=== PATIENT | female | born 1980 | race Caucasian/White ===

== ENCOUNTER 2021-05-04 19:23 | Emergency (ER) | payer OTHER ==
--- NOTE | 2021-05-04 21:19 | EDPHYS ---
Physician Documentation [facility] Name: Nini Carreon Age: 40 yrs Sex: Female : 1980 Arrival Date: 05/04/2021 Time: 19:27 Bed DX2 Private MD: ED Physician Shelton Bonds HPI: 05/04 20:03 This 40 yrs old Female presents to ER via Ambulatory with complaints of Covid pm1 Swab. 20:03 The patient presents to the emergency department with nausea, vomiting. Onset: The pm1 symptoms/episode began/occurred 1 week(s) ago. Possible causes: Exposure to Covid in work environment. The symptoms are aggravated by nothing. The symptoms are alleviated by nothing. Associated signs and symptoms: Pertinent positives: fever, Cough and congestion. Severity of symptoms: in the emergency department the symptoms have improved. The patient has not experienced similar symptoms in the past. The patient has not recently seen a physician. 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 - Social history:: Smoking status: Patient reports the use of cigarette tobacco products, smokes one-half pack cigarettes per day. ROS: 20:03 Eyes: Negative for injury, pain, redness, and discharge, ENT: Negative for injury, pm1 pain, and discharge, Cardiovascular: Negative for chest pain, palpitations, and edema, Respiratory: Negative for shortness of breath, cough, wheezing, and pleuritic chest pain. 20:03 MS/Extremity: Negative for injury and deformity, Skin: Negative for injury, rash, and discoloration, Neuro: Negative for headache, weakness, numbness, tingling, and seizure. 20:03 Constitutional: Positive for body aches, fever, Negative for poor PO intake. 20:03 Abdomen/GI: Positive for nausea, vomiting, and diarrhea, Negative for abdominal pain. 20:03 All other systems are negative. Exam: 20:03 Constitutional: This is a well developed, well nourished patient who is awake, alert, pm1 and in no acute distress. Head/Face: Normocephalic, atraumatic. 20:03 Skin: Warm, dry with normal turgor. Normal color with no rashes, no lesions, and no evidence of cellulitis. MS/ Extremity: Pulses equal, no cyanosis. Neurovascular intact. Full, normal range of motion. 20:03 Cardiovascular: Exam negative for acute changes, Rate: normal, Rhythm: regular, Pulses: no pulse deficits are appreciated. 20:03 Respiratory: Exam negative for acute changes, respiratory distress, shortness of breath. 20:03 Neuro: Exam negative for acute changes, Orientation: is normal, Mentation: is normal, Motor: is normal, moves all fours. Vital Signs: 19:40 BP 136 / 84; Pulse 101; Resp 18 S; Temp 99.1(O); Pulse Ox 99% on R/A; Weight 77.11 kg ca1 (R); Height 5 ft. 6 in. (167.64 cm) (R); 21:06 BP 126 / 73; Pulse 95; Resp 18 S; Pulse Ox 99% on R/A; ca1 19:40 Body Mass Index 27.44 (77.11 kg, 167.64 cm) ca1 MDM: 19:52 Patient medically screened. pm1 21:18 Data reviewed: vital signs. Data interpreted: Pulse oximetry: on room air is 99 %. pm1 Interpretation: normal. Counseling: I had a detailed discussion with the patient and/or guardian regarding: the historical points, exam findings, and any diagnostic results supporting the discharge/admit diagnosis, lab results, the need for outpatient follow up, to return to the emergency department if symptoms worsen or persist or if there are any questions or concerns that arise at home. 05/04 21:13 Order name: SARS-COV-2 RT PCR; Complete Time: 21:17 EDMS Administered Medications: No medications were administered Disposition: 05/05 07:08 Co-signature as Attending Physician, Shelton Bonds MD I agree with the assessment and yuki plan of care. Disposition Summary: 05/04/21 21:18 Discharge Ordered Location: Home pm1 Problem: new pm1 Symptoms: have improved pm1 Condition: Stable pm1 Diagnosis - Coronavirus infection, unspecified pm1 Followup: pm1 - With: Emergency Department - When: As needed - Reason: Worsening of condition Followup: pm1 - With: Private Physician - When: 2 - 3 days - Reason: Recheck today's complaints, Continuance of care, Re-evaluation by your physician Discharge Instructions: - Discharge Summary Sheet pm1 - COVID-19 pm1 Forms: - Medication Reconciliation Form pm1 - Thank You Letter pm1 - Antibiotic Education pm1 - Work release form pm1 - Prescription Opioid Use pm1 Signatures: Dispatcher [employer] EDMS Shelton Bonds MD MD cha Marinas, Patrick, NP GRADE SETTER pm1 Nadia Roman RN RN ca1 Corrections: (The following items were deleted from the chart) 05/04 20:18 19:46 CORONAVIRUS+MR.LAB.BRZ ordered. EDMS EDMS
--- NOTE | 2021-05-04 21:19 | ER ---
Nurse's Notes [facility] Name: Nini Carreon Age: 40 yrs Sex: Female : 1980 Arrival Date: 05/04/2021 Time: 19:27 Bed DX2 Private MD: Diagnosis: Coronavirus infection, unspecified Presentation: 05/04 19:40 Chief complaint: Patient states: S/S 04/28/2021. Chills, loss of taste and smell, N/V/D, ca1 muscle ache, headache, congestion and cough, fever. Coronavirus screen: Client denies travel out of the [place] in the last 14 days. chills, congestion, cough unrelated to allergies, diarrhea, fatigue, fever, headache, muscle pain, nausea, runny nose, loss of taste or smell, vomiting. Client presents with at least one sign or symptom that may indicate coronavirus-19. Standard/surgical mask placed on the client. Provider contacted for isolation considerations. Ebola Screen: Patient negative for fever greater than or equal to 101.5 degrees Fahrenheit, and additional compatible Ebola Virus Disease symptoms Patient denies exposure to infectious person. Patient denies travel to an Ebola-affected area in the 21 days before illness onset. No symptoms or risks identified at this time. Initial Sepsis Screen: Does the patient meet any 2 criteria? No. Patient's initial sepsis screen is negative. Does the patient have a suspected source of infection? No. Patient's initial sepsis screen is negative. Risk Assessment: Do you want to hurt yourself or someone else? Patient reports no desire to harm self or others. Onset of symptoms was April 28, 2021. 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 - Social history:: Smoking status: Patient reports the use of cigarette tobacco products, smokes one-half pack cigarettes per day. Screenin:48 Abuse screen: Denies threats or abuse. Denies injuries from another. Nutritional ca1 screening: No deficits noted. Tuberculosis screening: No symptoms or risk factors identified. Fall Risk None identified. Assessment: 19:48 General: Appears in no apparent distress. comfortable, Behavior is calm, cooperative, ca1 appropriate for age. General: Reports chills for fever for feeling ill for fatigue for >3 days. Pain: Complains of pain in all over Pain began a week ago. Neuro: Level of Consciousness is awake, alert, obeys commands, Oriented to person, place, time, situation. Cardiovascular: Heart tones S1 S2 present Capillary refill < 3 seconds Patient's skin is warm and dry. Respiratory: Reports cough that is Airway is patent Respiratory effort is even, unlabored, Respiratory pattern is regular, symmetrical, Breath sounds are clear bilaterally. GI:. EENT: Reports nasal congestion. Derm: Skin is intact, is healthy with good turgor, Skin is pink, warm \T\ dry. Musculoskeletal: Circulation, motion, and sensation intact. Capillary refill < 3 seconds. 21:06 Reassessment: Patient appears in no apparent distress at this time. Patient and/or ca1 family updated on plan of care and expected duration. Pain level reassessed. Patient is alert, oriented x 3, equal unlabored respirations, skin warm/dry/pink. Vital Signs: 19:40 BP 136 / 84; Pulse 101; Resp 18 S; Temp 99.1(O); Pulse Ox 99% on R/A; Weight 77.11 kg ca1 (R); Height 5 ft. 6 in. (167.64 cm) (R); 21:06 BP 126 / 73; Pulse 95; Resp 18 S; Pulse Ox 99% on R/A; ca1 19:40 Body Mass Index 27.44 (77.11 kg, 167.64 cm) ca1 ED Course: 19:27 Patient arrived in ED. bp1 19:43 Triage completed. ca1 19:43 Arm band placed on right wrist. ca1 19:48 Patient has correct armband on for positive identification. ca1 19:49 Nadia Roman, NIKKIE is Primary Nurse. ca1 19:52 Armen Fernández NP is PHCP. pm1 19:52 Vikash Cunningham MD is Attending Physician. pm1 19:52 Attending Physician role handed off by Vikash Cunningham MD [facility] 19:52 Shelton Bonds MD is Attending Physician. yuki 20:27 No provider procedures requiring assistance completed. Patient did not have IV access ca1 during this emergency room visit. 21:14 Notified Nurse Practitioner and/or Physician Electrical Research Engineer of a critical lab result(s), ca1 COVID+. Administered Medications: No medications were administered Outcome: 21:18 Discharge ordered by . pm1 21:39 Discharged to home ambulatory. em 21:39 Condition: stable 21:39 Discharge instructions given to patient, Instructed on discharge instructions, follow up and referral plans. Demonstrated understanding of instructions, follow-up care. 21:40 Patient left the ED. em Signatures: Shelton Bonds MD MD cha Munoz, Edgar RN RN em Armen Fernández, BUTTER PRINTER BUTTER PRINTER pm1 Nadia Roman RN RN Diamond Zheng bp1
[2021-05-04 22:31] VITALS: TEMP 99.1; O2SAT 99
[2021-05-04 22:34] VITALS: BP 126/73
== END 2021-05-04 21:40 | disposition home or self-care (01) ==
LOC: ER 19:23
DX: U07.1 COVID-19 (principal)
CPT/HCPCS: 99281; U0003

== ENCOUNTER 2023-10-12 06:18 | Day surgery (SDC) | payer BC ==
[2023-10-06 11:35] LABS: Absolute Lymphocytes (CBC) 3.1 K/uL (0.7-4.9); Hematocrit 48.3 % (36.0-45.0); Lymphocytes % 25.9 % (15.3-44.8); Platelets 282 thou/uL (152-406); RBC Red Blood Cell Count 5.49 M/uL (3.86-4.86)
--- NOTE | 2023-10-06 11:38 | RAD REPORT ---
EXAM DESCRIPTION: RAD - Chest Pa And Lat (2 Views) - 10/06/2023 11:31 am CLINICAL HISTORY: pre op for surgery. Hypertension COMPARISON: CHEST PA AND LAT 2 VIEW dated 02/13/2015; CHEST PA AND LAT 2 VIEW dated 03/18/2011; CHEST SINGLE VIEW dated 12/13/2010; CHEST PA AND LAT 2 VIEW dated 05/06/2010 TECHNIQUE: PA and lateral views of the chest were obtained. FINDINGS: The lungs are clear. Heart size is normal and central vasculature is within normal limits. No pleural effusion or pneumothorax seen. No acute bony finding noted. IMPRESSION: No acute cardiopulmonary process.
[2023-10-06 11:43] LABS: Specific Gravity 1.028 (1.005-1.030); Urine Bacteria <20 /HPF (<20); Urine Bilirubin NEGATIVE (Negative); Urine Blood Trace (Negative); Urine Clarity Extremely Turbid (Clear); Urine Color Yellow (Yellow); Urine Glucose NEGATIVE (Negative); Urine Mucus 1+ /HPF (None Seen); Urine Protein TRACE (Negative); Urine Urobilinogen Normal (Normal); Urine pH 5.5 (5.0-7.0)
[2023-10-11 01:33] LABS: Specific Gravity 1.028 (1.005-1.030)
[2023-10-12] MEDS ORDERED: CEFAZOLIN SODIUM 2 GM/VIAL ONE (06:35)
[2023-10-12] MEDS ORDERED: Ringers Lactate 1,000 ML IV ONE ×2 (06:35→09:24)
[2023-10-12] MEDS ORDERED: BUPIVACAINE 0.25% PF 30 ML VIAL ONE (06:54)
[2023-10-12] MEDS ORDERED: GLYCOPYRROLATE 0.2 MG/ML SYR ONE (07:11)
[2023-10-12] MEDS ORDERED: ROCURONIUM 50 MG/5 ML VIAL IV ONE (07:11)
[2023-10-12] MEDS ORDERED: NEOSTIGMINE 1 MG/ML -10 ML VIAL ONE (07:11)
[2023-10-12] MEDS ORDERED: LIDOCAINE 2% MPF 5 ML VIAL ONE (07:11)
[2023-10-12] MEDS ORDERED: ONDANSETRON 4 MG/2 ML VIAL ONE (07:11)
[2023-10-12] MEDS ORDERED: FENTANYL CITR 100 MCG/2 ML ONE ×2 (07:14→08:06)
[2023-10-12] MEDS ORDERED: MIDAZOLAM HCL 2 MG/2 ML INJ ONE (07:14)
[2023-10-12] MEDS ORDERED: propofoL 200 MG/20 ML VIAL IV ONE (07:14)
[2023-10-12] MEDS ORDERED: SCOPOLAMINE HYDROBROMIDE PATCH TD ONE ×2 (07:26→09:25)
[2023-10-12] MEDS: HYDROMORPHONE HCL 1 MG/ML INJ ONE ×2 (10:08→10:13)
[2023-10-12 10:38] VITALS: O2SAT 96
[2023-10-12] MEDS ORDERED: HYDROCODONE/APAP 5/325 MG TAB ONE (11:00)
[2023-10-12] MEDS ORDERED: KETOROLAC 30 MG/ML INJ ONE (11:56)
[2023-10-12 15:01] LABS: Absolute Lymphocytes (CBC) 0.8 K/uL (0.7-4.9); Hematocrit 43.4 % (36.0-45.0); Lymphocytes % 4.9 % (15.3-44.8); MCV 88.9 fL (80-100); MPV 8.4 fL (7.6-11.3); Platelets 240 thou/uL (152-406); RBC Red Blood Cell Count 4.89 M/uL (3.86-4.86)
[2023-10-12 15:13] LABS: Potassium 4.1 mEq/L (3.5-5.1)
[2023-10-12 16:03] LABS: Blood Morphology Comment NOT SEEN (NOT SEEN); Platelet Estimate ADEQ; White Blood Cell Scan OK (OK)
[2023-10-12 17:26] VITALS: BP 116/78; TEMP 97.4
--- NOTE | 2023-10-14 03:29 | OP ---
Date of Procedure: 10/12/2023 Surgeon: Sujatha Montero MD [facility] Medical Specialist: Iwona Bower Preoperative Diagnoses: Pelvic pain and right complex ovarian cyst. Postoperative Diagnoses: Pelvic pain and right complex ovarian cyst, stage III uterovaginal prolapse , posterior enterocele, and posterior wall defect with perineal descent and possible mild rectal prol apse. Procedures Performed: 1.Total laparoscopic hysterectomy. 2.Bilateral salpingectomy. 3.Right oophorectomy. 4.Left ovariopexy. Estimated Blood Loss: Less than 25 mL. Specimens: Uterus, bilateral tubes, and right ovary. Complications: No complications. Drains: No drains. Condition: Stable. Findings: No right ovarian cyst. No endometriosis. Left ovary was extremely immobile and therefore ovariopexy was conducted to the distal part of the round ligament on the left side. The patient's P OP-Q on my examination under anesthesia was -2, -2, 0, 4.5, thin, 8, -1, 0, -2. Significant perineal descent and a posterior enterocele were noted as well as mild rectal prolapse. No mass was seen on the right adnexa, likely a ruptured cyst and left ovariopexy as dictated. Procedure In Detail: After informed consent was verified, the patient was taken back to OR. She had significant right lower quadrant pain and pelvic pain even though it was in the absence of bleeding. She is a smoker. Ovarian preservation was reviewed. Medical management had failed, so she was con sented for hysterectomy and bilateral salpingectomy. On one of the scans, she had a 4.1 cm and over 2 cm complex masses with debris, and the right adnexa considered to be possible endometrioma. CA-125 was done and was only 19. Consented her for TLH, bilateral salpingectomy, right oophorectomy, and p reservation of left ovary. After she was taken back to the OR, placed in a supine fashion on the operating table, general anesth esia was given. She was placed in a dorsal lithotomy position. Arms tucked by the side. Abdomen wa s prepped with ChloraPrep; vulva, vagina, and perineum with Betadine. SCDs were started. Ancef was given 2 g. Time-out was done and procedure started. Speculum was placed to expose the cervix. Anterior lip was grasped with single-tooth tenaculum, dila leidy to 16-Swedish. Large cup uterine manipulator was introduced and fixed in place. Escobar was placed to drain the bladder and attached to retrograde filling. This area was draped. One cm infraumbilical incision was made with the scalpel using the open laparoscopy technique. Fasci a incised, tagged with 0 Vicryl sutures, and the peritoneum entered sharply. After Rogder was introd uced and adequate insufflation was obtained, she had a 10 mm suprapubic port and a 5 mm left lower qu adrant port. After visualization of the pelvic cavity, no endometriosis was found. The right ovary appeared to be mostly unremarkable, likely a ruptured cyst that had been reabsorbed, very pendulous o n the left side. Significant pelvic organ prolapse, as dictated in the procedure note above, uterosacral ligament on t he left side was completely relaxed and unidentifiable. However, the left side was defined and was r e-included in the cuff closure as dictated later. The left round ligament was taken down and the left tube was taken down. Utero-ovarian ligament was taken and the broad ligament. The anterior and posterior leaves of the peritoneum were opened up. U reters were traced from the pelvic brim to the ureteric tunnels. The bladder flap was raised anterio rly and posteriorly. The posterior peritoneum was opened up. The vessels were taken down and shaina al ligament was taken down. Opposite side dissection was performed to isolate the IP from the latera l wall between the ureter and the IP. The IP was taken down with the help of the LigaSure, and mesos alpinx and the rest of the mesovarium were all taken down. The round ligament was taken down. Broad ligament was taken down. Anteriorly connected the bladder flap. Posteriorly taken down to the post erior rim of the cup. Then, vessels were identified, taken down and the cardinal ligaments were take n down. Circumferential colpotomy was performed after the bladder was retracted inferiorly with the help of monopolar hook blade, and the bladder was filled and drained to note its marking. After the specimen was detached and pulled out through the vagina, thorough irrigation and suction performed. There was bleeding on the left lateral aspect. This was cauterized with the bipolar [place] grasper and then 0 PDS suture was placed at this angle, which secured complete hemostasis. Similarly, oppos ite side simple angle stitch was placed and then three [id number] in the middle and another sim ple 0 Vicryl stitch in the midline as well to complete that position. Excellent support in the utero sacrals included here. After the irrigation and suction were performed and hemostasis was secured, ovariopexy was performed with 3-0 Monocryl to the base of the left round ligament. Ovariopexy was performed in a buried figur e-of-eight fashion and tied down. After thorough irrigation and suction here, and all pedicles were secured, all the ports were removed and gas was desufflated. Fascia was closed with the tagged 0 Ron ryl sutures tied to each other and simple 0 Vicryl stitch at the fascia on the suprapubic site. All the skin incisions were closed with the help of interrupted 5-0 Monocryl. Escobar was removed and vagi nal bulb occluder were removed. Cystoscopy was performed with 17-Swedish sheath, 30-degree lens. Nor mal saline, excellent jets of urine from both ureteric orifices. No evidence of any trauma to the bl adder. The bladder was drained. She was recovered and taken to the PACU in stable condition. Her s ister was intimated about her findings. She will follow up in 1 week. EDI/MARK Voice ID: [id number] Report ID: [id number]
== END 2023-10-12 15:25 | disposition home or self-care (01) ==
LOC: OR 06:18
PROVIDERS: ATTEND Obstetrics & Gynecology
PROC: 0UT74ZZ Resection of Bilateral Fallopian Tubes, Percutaneous Endoscopic Approach (ICD-10-PCS; 2023-10-12)
PROC: 0UT04ZZ Resection of Right Ovary, Percutaneous Endoscopic Approach (ICD-10-PCS; 2023-10-12)
PROC: 0UQ14ZZ Repair Left Ovary, Percutaneous Endoscopic Approach (ICD-10-PCS; 2023-10-12)
PROC: 0UT94ZZ Resection of Uterus, Percutaneous Endoscopic Approach (ICD-10-PCS; principal; 2023-10-12 07:30)
DX: R10.2 Pelvic and perineal pain (principal); N83.201 Unspecified ovarian cyst, right side; D25.9 Leiomyoma of uterus, unspecified
CPT/HCPCS: 85025 ×2; 81001; 80048; 36415 ×2; 86900; 86850; 81025; 86901; 88307; 71046; 58571; 58999; J2704; J2710; J2001; J2250; J3010 ×2; J1170; J2405; J7120 ×2